=== PATIENT | male | born 1955 | race Two or more races ===

== ENCOUNTER → 2018-03-20 | Emergency (ER) | payer OTHER ==
[~2018-03-20] VITALS: Ht 175.3 cm; Wt 88.0 kg
[~2018-03-20] MED LIST: ASA81 MG; COREG CR20 MG; DOLOGESIC CAPLE1 TAB PO; LASIX40 MG; METFORMIN HCL1000 MG; NORVASC10 MG; PLAVIX75 MG; ZESTRIL20 MG; ZOCOR40 MG; ZYNCOF 20-400120 ML PO; [UNRECOGNIZED DRUG - OTHER]
== END | disposition home or self-care (01) ==
LOC: ER 09:11
DX: R07.89 Other chest pain (principal); R06.02 Shortness of breath

== ENCOUNTER → 2019-03-27 | Emergency (ER) | payer OTHER ==
[~2019-03-27] VITALS: Ht 175.3 cm; Wt 89.4 kg
[~2019-03-27] MED LIST changes: +ELIQUIS5 MG; +ENTRESTO 24 MG1 EACH
== END | disposition home or self-care (01) ==
LOC: ER 09:38
DX: S00.83XA Contusion of other part of head, initial encounter (principal); S40.011A Contusion of right shoulder, initial encounter; R55 Syncope and collapse; W18.09XA Striking against other object with subsequent fall, initial encounter; Y93.89 Activity, other specified; Y92.89 Other specified places as the place of occurrence of the external cause; Y99.8 Other external cause status